=== PATIENT | male | born 1945 | race Caucasian/White ===

== ENCOUNTER → 2021-01-23 | Outpatient (CLI) | payer MEDICARE, BC ==
[~2021-01-23] MED LIST: BUPIVACAINE MPF 0.25% 10 ML VIAL. ONE; CITA40TA6 PO; DOCU50CA9 PO; FEXO180T81 PO; IOHEXOL 180 MG/ML 10 ML VIAL. ONE; LACT1CAP6 PO; LATA7.5D OU; LISI1TAB37 PO; MENS MULTIVITAMIN PO; SIMV20TA18 PO; ZOLP5TAB5 PO; methylPREDNISolone ACETATE 40 MG/ML VIAL. ONE; methylPREDNISolone ACETATE 80 MG/ML VIAL. ONE
--- NOTE | 2021-01-23 13:11 | PDOC1 ---
INITIAL PAIN CONSULT DATE OF SERVICE: DOS: DATE: 01/23/21 TIME: 13:05 CHIEF COMPLAINT: Chief Complaint: Bilateral neck pain HISTORY OF PRESENT ILLNESS: 75-year-old male presents history of pain in the base of the neck and mid neck for approximately 1-1/2 years not the result of any specific injury or accident or getting worse with time patient been treated in outside facility had 3 epidural injections as well as physical therapy dry needling and trigger point injections without any significant improvement in pain patient reports is getting much worse the base of the neck and to the mid upper neck but not quite to the base of the skull is described as throbbing and aching change during the day difficult to move his head and twist his cervical spine which make it difficult for him to drive a car patient reports awakening from sleep least 3-4 times a night does not affect his bowel bladder control or ability to walk his body drives becoming much more impaired secondary to and able to turn his head to the right or left side without significant difficulty and pain patient reports pain does not radiate specifically does not going to the upper extremities patient rates disability rating 0-10 10 me the worst is a 4 family home responsibilities 9 with recreation 6 with social activity for with occupation 9 with sexual behavior and 0 self-care life support activities. Patient is taking Tylenol which actually does decrease the pain by fair extent he is also tried naproxen which helps as well. Patient have a MRI scan of the cervical spine showing small central posterior disc protrusion contacting spinal cord C6-7 with cord maintaining normal signal broad based posterior disc bulge producing mass-effect on the thecal sac at C5-6 as well. Mild lateral facet degenerative changes are seen at C5-6 as well as C4-5 C3-C4 and C6-7. PAST MEDICAL HISTORY: PMH: Arthritis, hypertension benign prostatic hypertrophy PREVIOUS SURGERIES: Past Surgical Hx: Colon resection, tonsillectomy, TURP, deviated septum repair CURRENT MEDICATIONS: Current Meds: Active Scripts Medications Dose Route/Sig Max Daily Dose Days Date Category Stool Softener (Docusate Sodium) 50 Mg Capsule 1 Cap PO DAILY 30 01/23/21 Reported Probiotic (Lactobacillus Acidophilus) 1 Each Capsule 1 Each PO DAILY 01/23/21 Reported [mens 50 multivitamin] 1 PO 01/23/21 Reported Kierra Allergy (Fexofenadine Hcl) 180 Mg Tablet 1 Tab PO DAILY 14 01/23/21 Reported Zolpidem Tartrate 5 Mg Tablet 5 Mg PO PRN QHS PRN 01/23/21 Reported Latanoprost 0.005% Eye Drop (Latanoprost/Pf) 7.5 Ml Drops 1 Drop OU QHS 01/23/21 Reported Lisinopril-Hctz 20-12.5 Mg Tab (Lisinopril/Hydrochlorothiazide) 1 Each Tablet 1 Tab PO DAILY 01/23/21 Reported Simvastatin 20 Mg Tablet 1 Tab PO QHS 01/23/21 Reported Citalopram Hbr (Citalopram Hydrobromide) 40 Mg Tablet 1 Tab PO DAILY 01/23/21 Reported ALLERGIES; Allergies: Coded Allergies: No Known Drug Allergies (Unverified , 01/23/21) FAMILY HISTORY: Family Hx: Heart disease kidney disease and cancers SOCIAL HISTORY: Social Hx: Patient drinks alcohol 2-3 drinks daily but quit smoking many years ago does not use any illegal illicit recreational drinks is lives with his spouse lives locally in [facility] REVIEW OF SYSTEMS: ROS: Positive for those items mentioned in history of present illness, all systems are reviewed, otherwise negative ,and are complete full and well-documented on patient's chart. PHYSICAL EXAM: VS: Blood pressure is 163/104 pulse 76 respirations 16 temperature 98.4 F height is 5 foot 8 inches weight is 164 pounds PE: PHYSICAL EXAMINATION: GENERAL: The patient is awake, alert, oriented, appropriate, very pleasant in demeanor HEENT: Shows normocephalic, atraumatic. Extraocular movements are intact and symmetrical. Oral cavity: Mucous membranes moist and pink. NECK: Shows anterior throat supple without palpable lymphadenopathy noted. Swallow reflex symmetrical. CHEST: Shows normal on inspection. Breath sounds are clear bilaterally, distant no rales rhonchi or wheezes auscultated. HEART: Shows S1, S2 clear. No murmurs auscultated. ABDOMEN: Soft, nontender, nondistended. No palpable organomegaly is noted. BACK: Shows spine grossly in the midline. Normal-appearing cervical lordotic curvature. Cervical paraspinous muscles show symmetrical inspection, patient is very firm ropelike and tender musculature throughout the upper middle lower decrease the paraspinous muscles bilaterally right equal to left without any significant atrophy hypertrophy no trigger points no radiation of pain without radiation to the upper extremities or shoulders. There is slightly increased thoracic kyphosis, some minor flattening of the lumbar lordotic curvature. EXTREMITIES: Upper extremities show deep tendon reflexes 2+ in the biceps and triceps tendons. 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 Peripheral pulses are 2+ radial. No peripheral edema is noted bilaterally. Upper extremities are warm and dry to touch, equal in color and appearance. SKIN: Shows warm and dry, good turgor. No edema. No sores, rashes or bruising throughout. IMPRESSION: Impression: 75-year-old male with history of cervicalgia for 1-1/2 L MRI scan cervical spine as noted Arthritis Hypertension Plan: Options were discussed the patient including conservative management continued physical therapies interventional techniques. Patient would like to pursue interventional techniques. We discussed bilateral cervical medial branch facet blocks at the C3-4, C4-5, C5-6, C6-7 levels bilaterally with fluoroscopic guidance. Patient would like to proceed. Risks were discussed including but not limited to: Bleeding, infection, possibility of epidural hematoma and subsequent neurological compromise, dural puncture, headaches, spinal cord and/or nerve damage, side effects of steroid medication, and poor results regarding pain control. Patient understands and wished to proceed. Patient will return to clinic in approximate 2 weeks for follow-up, was counseled as return appointment, activity level, and side effect to be aware of. Under sterile prep and drape patient in prone position using C-arm fluoroscopic guidance patient cervical spine was notified in AP view with slight craniocaudad view to visualize the waist of the cervical vertebrae bilaterally. Using 1% lidocaine skin was topically anesthetized over the waist of the vertebrae for starting on the right side at C3-4 C4-5 C5-6 and C6-7. Using 22-gauge Quincke needle was then advanced through the anesthetized area to rest in contact with the waist of the vertebral body at each level. Lateral views were then used to confirm position of the needles at the facet level and slightly posterior with c ontact in the region of the medial branches at each level. Stylets were removed, and 0.5 cc of contrast was injected without vascular uptake at each level with good local spread at the level of the medial branches. This was repeated for the left side at the same levels and same technique and fluoroscopic views. Each needle showed negative aspiration and good spread of contrast. At this time each level receive 0.5 cc of bupivacaine for a total of 8 cc and total of 120 mg Depo-Medrol. [place] were removed sterile bandages were applied. Patient tolerated procedure well and had no complications. KUNAL KRUSE MD Jan 23, 2021 13:11
== END | disposition home or self-care (01) ==
LOC: PNCL 08:02
PROVIDERS: ATTEND Anesthesiology
DX: M47.812 Spondylosis without myelopathy or radiculopathy, cervical region (principal); M54.2 Cervicalgia; M19.90 Unspecified osteoarthritis, unspecified site; I10 Essential (primary) hypertension; N40.0 Benign prostatic hyperplasia without lower urinary tract symptoms; Z79.899 Other long term (current) drug therapy; Z98.890 Other specified postprocedural states; Z82.49 Family history of ischemic heart disease and other diseases of the circulatory system
CPT/HCPCS: 64490; 64491; 64492; J1030; J1040; J3490; Q9965

== ENCOUNTER → 2021-02-06 | Outpatient (CLI) | payer MEDICARE, BC ==
--- NOTE | 2021-02-06 09:00 | PDOC ---
Progress Note - Pain Clinic Date of Service: DOS: DATE: 02/06/21 TIME: 08:56 Diagnosis: Dx: Bilateral cervical spondylosis History or Present Illness: HPI: 75-year-old male returns for follow-up status post bilateral cervical facet medial branch blocks C3-4, C4-5, C5-6, C6-7. Patient reports about 75 to 80% improvement for several weeks and is still helping but is more like about a 70% improvement now patient reports the base of the neck bilaterally also in the mid upper neck his headaches now are much better and essentially resolved has increased mobility with the right and left lateral rotation as well as extension flexion patient reports he is doing much better he is very pleased with his progress but the pain is beginning to return where the rotating pain is becoming more noticeable. Patient rates his pain as a 7 on scale 10 is worse over the past week 6 on average 3 its least and is a 5 today patient what is aching and tight in the neck bilaterally right essentially equal to left. Patient reports no radiation to the upper extremities. Patient reports no new deficits. Physical Exam: VS: Blood pressure is 142/82 pulse 76 respirations 18 temperature 98.1 F weight is 160 pounds PE: PHYSICAL EXAMINATION: GENERAL: The patient is awake, alert, oriented, appropriate, very pleasant in demeanor, patient [place] by his HEENT: Shows normocephalic, atraumatic. Extraocular movements are intact and symmetrical. Oral cavity: Mucous membranes moist and pink. Dentition is intact. NECK: Shows anterior throat supple without palpable lymphadenopathy noted. Swallow reflex symmetrical. CHEST: Shows normal on inspection. Breath sounds are clear bilaterally, no rales or rhonchi. HEART: Shows S1, S2 clear. No murmurs auscultated. ABDOMEN: Soft, nontender, nondistended. No palpable organomegaly is noted. BACK: Shows spine grossly in the midline. Normal-appearing cervical lordotic curvature. Cervical paraspinous muscles show symmetrical inspection, palpation some moderate tenderness diffusely throughout the upper middle lower decrease the paraspinous muscles but without radiation without trigger points. Patient shows good rotation motion improved from previous exam but still with some tenderness with far right and far left lateral rotation past 45 degrees as well as extension but not with forward flexion. There is slightly increased thoracic kyphosis, some minor flattening of the lumbar lordotic curvature. . EXTREMITIES: Upper extremities show deep tendon reflexes 2+ in the biceps and triceps tendons. 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 Peripheral pulses are 2+ radial. No peripheral edema is noted bilaterally. Upper extremities are warm and dry to touch, equal in color and appearance. SKIN: Shows warm and dry, good turgor. No edema. No sores, rashes or bruising throughout. Procedure: Procedure: Options discussed with patient. Patient chart reviews his current medication regimen updated current review of systems updated today as well. We will proceed with bilateral C3-4, C4-5, C5-6, C6-7 medial branch facet blocks today with fluoroscopic guidance. Risks were discussed including but not limited to: Bleeding, infection, possibility of epidural hematoma and subsequent neurological compromise, dural puncture, headaches, spinal cord and/or nerve damage, side effects of steroid medication, and poor results regarding pain control. Patient understands and wished to proceed. Patient will return to clinic in approximately 2 weeks for follow-up, was counseled as to return appointment, activity level, and side effect to be aware of. Medication Injected: Med Injected: Under sterile prep and drape patient in prone position using C-arm fluoroscopic guidance patient cervical spine was notified in AP view with slight craniocaudad view to visualize the waist of the cervical vertebrae bilaterally. Using 1% lidocaine skin was topically anesthetized over the waist of the vertebrae for starting on the right side at C3-4 C4-5 C5-6 and C6-7. Using 22-gauge Quincke needle was then advanced through the anesthetized area to rest in contact with the waist of the vertebral body at each level. Lateral views were then used to confirm position of the needles at the facet level and slightly posterior with contact in the region of the medial branches at each level. Stylets were removed, and 0.5 cc of contrast was injected without vascular uptake at each level with good local spread at the level of the medial branches. This was repeated for the left side at the same levels and same technique and fluoro scopic views. Each needle showed negative aspiration and good spread of contrast. At this time each level receive 0.5 cc of bupivacaine for a total of 8 cc and total of 120 mg Depo-Medrol. [place] were removed sterile bandages were applied. Patient tolerated procedure well and had no complications. Condition at Discharge: Condition at Discharge: Condition at discharge is stable, patient tolerated the procedure well and had no complications. KUNAL KRUSE MD Feb 06, 2021 09:00
== END | disposition home or self-care (01) ==
LOC: PNCL 08:06
PROVIDERS: ATTEND Anesthesiology
DX: M47.812 Spondylosis without myelopathy or radiculopathy, cervical region (principal); Z79.899 Other long term (current) drug therapy
CPT/HCPCS: 64490; 64491; 64492; J1030; J1040; J3490; Q9965; 64480

== ENCOUNTER → 2021-02-27 | Outpatient (CLI) | payer MEDICARE, BC ==
--- NOTE | 2021-02-27 10:35 | PDOC ---
Progress Note - Pain Clinic Date of Service: DOS: DATE: 02/27/21 TIME: 10:28 Diagnosis: Dx: Bilateral cervical spondylosis History or Present Illness: HPI: 75-year-old male returns status post bilateral medial branch blocks cervical 3 4, 4 5, 5 6, 6 7 bilateral last seen February 06, 2021. Patient reports he did very well about 80 to 85% improvement in his pain the neck is beginning to return now in the upper part of neck more than the middle or lower distribution but in all the areas patient reports it is much better though with activity sleeping moving his head upper extremities patient reports his pain still a 6 on scale 10 is worst 3 on average 3 to [place] is a 3 today is doing much better with daily activities and feeling much better overall patient reports is an ac [place] pain not shooting radiating to the upper extremities patient reports better at night and she is not awakening from sleep anymore. Patient reports no radiation no photophobia no headaches with medication patient reports a new pain of occasional sharper pains shooting up into the back of the occipital region but these were transitory and have not been persistent is only happened about twice since his last visit. Patient has had a sinus cold over the past few weeks and put off his return until today. Physical Exam: VS: Blood pressure is 131/75 pulse 95 respirations 18 temperature 92 F height is 5 feet 8 inches weight is 64 pounds PE: PHYSICAL EXAMINATION: GENERAL: The patient is awake, alert, oriented, appropriate, very pleasant in demeanor HEENT: Shows normocephalic, atraumatic. Extraocular movements are intact and symmetrical. Oral cavity: Mucous membranes moist and pink. Dentition is intact. NECK: Shows anterior throat supple without palpable lymphadenopathy noted. Swallow reflex symmetrical. CHEST: Shows normal on inspection. Breath sounds are clear bilaterally, distant no rales or rhonchi. HEART: Shows S1, S2 clear. No murmurs auscultated. ABDOMEN: Soft, nontender, nondistended. No palpable organomegaly is noted. BACK: Shows spine grossly in the midline. Normal-appearing cervical lordotic curvature. Cervical paraspinous muscles show symmetrical inspection, on palpation some moderate tenderness diffusely bilaterally diffusely without sig nificant radiation patient does show significant tenderness with extension of cervical spine with pain the base of the skull and upper neck but better with forward flexion right and left lateral rotation shows a moderate pain in the same distribution but only moderate without radiation. There is slightly increased thoracic kyphosis, some minor flattening of the lumbar lordotic cur vature. EXTREMITIES: Upper extremities show deep tendon reflexes 2+ in the biceps and triceps tendons. 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 Peripheral pulses are 2+ radial. No peripheral edema is noted bilaterally. Upper extremities are warm and dry to touch, equal in color and appearance. SKIN: Shows warm and dry, good turgor. No edema. No sores, rashes or bruising throughout. Procedure: Procedure: Options were discussed with the patient. Patient chart was reviewed his current medication regimen updated current review of systems updated today as well. We will proceed with bilateral facet medial branch blocks of the cervical 3 4, 4 5, 5 6, 6 7 levels with fluoroscopic guidance. Patient will return to the clinic in approximately 3 weeks for follow-up, was counseled as to return appointment, activity level, and side effect to be aware of. Medication Injected: Med Injected: Under sterile prep and drape patient in prone position using C-arm fluoroscopic guidance patient cervical spine was notified in AP view with slight craniocaudad view to visualize the waist of the cervical vertebrae bilaterally. Using 1% lidocaine skin was topically anesthetized over the waist of the vertebrae for starting on the right side at C3-4 C4-5 C5-6 and C6-7. Using 22-gauge Quincke needle was then advanced through the anesthetized area to rest in contact with the waist of the vertebral body at each level. Lateral views were then used to confirm position of the needles at the facet level and slightly posterior with contact in the region of the medial branches at each level. Stylets were removed, and 0.5 cc of contrast was injected without vascular uptake at each level with good local spread at the level of the medial branches. This was repeated for the left side at the same levels and same technique and fluoroscopic views. Each needle showed negative aspiration and good spread of contrast. At this time each level receive 0.5 cc of bupivacaine for a total of 8 cc and total of 120 mg Depo-Medrol. [place] were removed sterile bandages were applied. Patient tolerated procedure well and had no complications. Condition at Discharge: Condition at Discharge: Condition at discharge stable, patient tolerated the procedure well and had no complications. KUNAL KRUSE MD Feb 27, 2021 10:35
--- NOTE | 2021-02-27 10:36 | PDOC4 ---
Procedure Note: ICD 10 Code: ICD 10 Code: M4 7.812 Procedure Note: Patient was consented for bilateral cervical facet medial branch blocks with fluoroscopic guidance. Risks were discussed including but not limited to: Bleeding, infection, possibility of epidural hematoma and subsequent neurological compromise, dural puncture, headaches, spinal cord and/or nerve damage, side effects of steroid medication, and poor results regarding pain control. Patient understands and wished to proceed. Under sterile prep and drape patient in prone position using C-arm fluoroscopic guidance patient cervical spine was notified in AP view with slight craniocaudad view to visualize the waist of the cervical vertebrae bilaterally. Using 1% lidocaine skin was topically anesthetized over the waist of the vertebrae for starting on the right side at C3-4 C4-5 C5-6 and C6-7. Using 22-gauge Quincke needle was then advanced through the anesthetized area to rest in contact with the waist of the vertebral body at each level. Lateral views were then used to confirm position of the needles at the facet level and slightly posterior with contact in the region of the medial branches at each level. Stylets were removed, and 0.5 cc of contrast was injected without vascular uptake at each level with good local spread at the level of the medial branches. This was repeated for the left side at the same levels and same technique and fluoroscopic views. Each needle showed negative aspiration and good spread of contrast. At this time each level receive 0.5 cc of bupivacaine for a total of 8 cc and total of 120 mg Depo-Medrol. [place] were removed sterile bandages were applied. Patient tolerated procedure well and had no complications. KUNAL KRUSE MD Feb 27, 2021 10:36
== END | disposition home or self-care (01) ==
LOC: PNCL 09:07
PROVIDERS: ATTEND Anesthesiology
DX: M47.812 Spondylosis without myelopathy or radiculopathy, cervical region (principal); Z79.899 Other long term (current) drug therapy; Z88.8 Allergy status to other drugs, medicaments and biological substances
CPT/HCPCS: 64490; 64491; 64492; J1030; J1040; J3490; Q9965

== ENCOUNTER → 2021-03-27 | Outpatient (CLI) | payer MEDICARE, BC ==
[~2021-03-27] MED LIST changes: -methylPREDNISolone ACETATE 40 MG/ML VIAL. ONE
--- NOTE | 2021-03-27 10:02 | PDOC ---
Progress Note - Pain Clinic Date of Service: DOS: DATE: 03/27/21 TIME: 09:57 Diagnosis: Dx: Cervical spondylosis History or Present Illness: HPI: 75-year-old male returns for follow-up status post cervical facet medial branch blocks at C3-4, C4-5, C5-6, C6-7. Patient reports he did very well with about 80% improvement after the last injections with the pain returning now more on the left than the right but present bilaterally patient reports did very well for about 3 weeks and the pain began to return again more in the left side than the right currently but reports it is now down to about a 50% level improvement overall. Patient reports no loss of motor function no deficits but significant tenderness with rotating to the left side especially when driving and with looking upwards when he is sitting down he has a clock in his home that he looks at that is a high on the wall and notices the pain when he is looking up at that from looking down in a seated position. Patient reports pain is aching and shooting base the neck and shoulders again worse on the left than the right described as a 7-8 on scale 10 is worst for an average for its least is a 4 to day. Patient reports no bowel or bladder incontinence no motor deficits but significant pain in the neck more on the left side. Patient reports that prior to the pain returning was doing much better with distance walking doing household activities try with greater ease and comfort still sleeps fairly well at night does not awaken from sleep most nights as it is more comfortable with laying down. Physical Exam: VS: Blood pressure is 150/80 pulse 75 respirations 18 temperature 90.1 is Fahrenheit height is 5 feet 8 inches weight is 165 pounds. PE: PHYSICAL EXAMINATION: GENERAL: The patient is awake, alert, oriented, appropriate, very pleasant in demeanor HEENT: Shows normocephalic, atraumatic. Extraocular movements are intact and symmetrical. Oral cavity: Mucous membranes moist and pink. NECK: Shows anterior throat supple without palpable lymphadenopathy noted. Swallow reflex symmetrical. CHEST: Shows normal on inspection. Breath sounds are clear bilaterally, no rales or rhonchi auscultated. HEART: Shows S1, S2 clear. No murmurs auscultated. ABDOMEN: Soft, nontender, nondistended. No palpable organomegaly is noted. BACK: Shows spine grossly in the midline. Normal-appearing cervical lordotic curvature. Cervical paraspinous muscles show symmetrical inspection, palpation some moderate tenderness diffusely throughout the upper middle lower decrease the paraspinous muscle slightly more on the left than the right but without specific trigger atrophy hypertrophy no trigger points or asymmetry. Patient shows some guarded rotation of motion especially with left lateral rotation past about 40 degrees right side is more comfortable but still some guarded rotation also with extension patient reports pain the base of the neck bilaterally as well as more on the left than the right into the lower neck and superior medial trapezius forward flexion of reports same tenderness on the left side greater than the right but present bilaterally. There is slightly increased thoracic kyphosis, some minor flattening of the lumbar lordotic curvature. EXTREMITIES: Upper extremities show deep tendon reflexes 2+ in the biceps and triceps tendons. 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 Peripheral pulses are 2+ radial. No peripheral edema is noted bilaterally. Upper extremities are warm and dry to touch, equal in color and appearance. SKIN: Shows warm and dry, good turgor. No edema. No sores, rashes or bruising throughout. Procedure: Procedure: Options discussed with the patient. Patient's old chart was reviewed his current medication regimen updated current review of systems updated today as well. We will proceed with bilateral facet medial branch blocks at the C3-4, C4-5, C5-6, C6-7 levels with fluoroscopic guidance. Risks were discussed including but not limited to: Bleeding, infection, possibility of epidural hematoma and subsequent neurological compromise, dural puncture, headaches, spinal cord and/or nerve damage, side effects of steroid medication, and poor results regarding pain control. Patient understands and wished to proceed. We discussed with the patient if he has similar improvement as he has had with the previous injections at the pain returns would consider radiofrequency ablation patient is interested in pursuing this. Patient will return to clinic in approximately 2 weeks for follow-up, was counseled as to return appointment, Activella, and side effect beware of. Medication Injected: Med Injected: Under sterile prep and drape patient in prone position using C-arm fluoroscopic guidance patient cervical spine was notified in AP view with slight craniocaudad view to visualize the waist of the cervical vertebrae bilaterally. Using 1% lidocaine skin was topically anesthetized over the waist of the vertebrae for starting on the right side at C3-4 C4-5 C5-6 and C6-7. Using 22-gauge Quincke needle was then advanced through the anesthetized area to rest in contact with the waist of the vertebral body at each level. Lateral views were then used to confirm position of the needles at the facet level and slightly posterior with contact in the region of the medial branches at each level. Stylets were removed, and 0.5 cc of contrast was injected without vascular uptake at each level with good local spread at the level of the medial branches. This was repeated for the left side at the same levels and same technique and fluoroscopic views. Each needle showed negative aspiration and good spread of contrast. At this time each level receive 0.5 cc of bupivacaine for a total of 8 cc and total of 120 mg Depo-Medrol. Howells were removed sterile bandages were applied. Patient tolerated procedure well and had no complications. Condition at Discharge: Condition at Discharge: Condition at discharge stable, patient tolerated procedure well and had no complications. KUNAL KRUSE MD Mar 27, 2021 10:02
== END | disposition home or self-care (01) ==
LOC: PNCL 08:54
PROVIDERS: ATTEND Anesthesiology
DX: M47.812 Spondylosis without myelopathy or radiculopathy, cervical region (principal); Z79.899 Other long term (current) drug therapy
CPT/HCPCS: 64490; 64491; 64492; J1040; J3490; Q9965

== ENCOUNTER → 2021-04-17 | Outpatient (CLI) | payer MEDICARE, BC ==
[~2021-04-17] MED LIST changes: +DEXAMETHASONE PRES.FREE 10 MG/ML VIAL. ONE; +LIDOCAINE 2% PF 5 ML VIAL. ONE; -methylPREDNISolone ACETATE 80 MG/ML VIAL. ONE
--- NOTE | 2021-04-17 14:52 | PDOC ---
Progress Note - Pain Clinic Date of Service: DOS: DATE: 04/17/21 TIME: 14:43 Diagnosis: Dx: Cervical spondylosis History or Present Illness: HPI: 75-year-old male returns after bilateral cervical medial branch facet blocks C3- 4, C4-5, C5-6, C6-7 with very good results about 80% improvement for 2 weeks patient reports is now down to about a 50% improvement over the last week or so still doing much better still more pain on the left side the right the base the neck worse with rotation of motion especially extension of the cervical spine but not as much with forward flexion and feels "tight" patient rates his pain is a 6 on scale 10 is worse over the past week 3 on average 3 to [place] is a [address] aching tight shooting across the neck but not into the upper extremities patient reports generally feels better with sitting with his head supported laying down but still does awaken from sleep about once a night but not every night. Patient reports no motor or sensory deficits. Physical Exam: VS: Blood pressure is 135/84 pulse 85 respirations 20 temperature is 98.1 F height is 5 foot 8 inches weight is 161 pounds. PE: PHYSICAL EXAMINATION: GENERAL: The patient is awake, alert, oriented, appropriate, very pleasant in demeanor HEENT: Shows normocephalic, atraumatic. Extraocular movements are intact and symmetrical. Oral cavity: Mucous membranes moist and pink. Dentition is intact. NECK: Shows anterior throat supple without palpable lymphadenopathy noted. Swal low reflex symmetrical. CHEST: Shows normal on inspection. Breath sounds are clear bilaterally, no rales or rhonchi. HEART: Shows S1, S2 clear. No murmurs auscultated. ABDOMEN: Soft, nontender, nondistended. No palpable organomegaly is noted. BACK: Shows spine grossly in the midline. Normal-appearing cervical lordotic curvature. Cervical paraspinous muscles show symmetrical inspection on palpation some moderate tenderness diffusely throughout the upper middle lower decrease the paraspinous muscles more on the left than the right but present bilaterally with deeper palpation patient shows good rotation of motion cervical spine with some moderate tenderness is reported again worse on the left than the right with extension fully and with full forward flexion mild tenderness on the left side and a tight sensation described as well patient shows good rotation of motion laterally is right and left greater than 45 degrees closer 90 degrees again with some moderate pain reported more on the left than with the right but performed fully. There is slightly increased thoracic kyphosis, some minor flattening of the lumbar lordotic curvature. . EXTREMITIES: Upper extremities show deep tendon reflexes 2+ in the biceps and triceps tendons. Motor exam is 5 on a scale of 5 with right rib, biceps and triceps flexion and 5/5 on the left. Peripheral pulses are 2+ radial. No peripheral edema is noted bilaterally. Upper extremities are warm and dry to touch, equal in color and appearance. SKIN: Shows warm and dry, good turgor. No edema. No sores, rashes or bruising throughout. Procedure: Procedure: Options were discussed with the patient. Patient's old chart was viewed as current medication regimen updated current review of systems updated today as well. We will proceed with the radiofrequency ablation of the left C3-4, C4-5, C5-6 medial branches with fluoroscopic guidance. Risks were discussed including but not limited to: Bleeding, infection, possibility of epidural hematoma and subsequent neurological compromise, dural puncture, headaches, spinal cord and/or nerve damage, potential thermal damage to the surrounding structures as well as permanent ischemic damage, side effects of steroid medication, and poor results regarding pain control. Patient understands and wished to proceed. Patient will return to clinic in approximately 1 week for follow-up. Medication Injected: Med Injected: Under sterile prep and drape patient in prone position using C-arm fluoroscopic guidance patient's cervical spine was visualized in both AP and lateral views using 1% lidocaine to topically anesthetize the areas overlying the C3-4, C4-5, C5-6 facet joints at the waist of the articular process, at the point of the medial branches. Using a 22-gauge insulated radiofrequency needle with curved tips and stylette, the needles were advanced to contact the region of the facet with the medial branch targets. This was repeated at the C3-4, C4-5, C5-6 levels. Stylette was removed and using radiofrequency probe inserted into each needle individually at each level with sensory testing first at each level, with reproduction of patient's typical cervical pain, and then motor tested with no motor stimulation of the lower extremity. At this time 0.5 cc of 2% lidocaine was then injected in each needle after motor testing but prior to radiofrequency ablation. Needle position was confirmed continuously throughout the radiofrequency ablation with both AP oblique and lateral views at each level. At this time radiofrequency ablation was carried out each level for 60 seconds at 80 C x 2 at each level with the tip of the needle turned 90 degrees after the first 60 seconds and then subsequent 60 seconds of radiofrequency ablation. Once radiofrequency ablation was completed solution containing 0.25% bupivacaine 1 cc and total of 10 mg Decadron was injected each level. Needle was then withdrawn. Patient had no paresthesias throughout the procedure no radiation of pain into the lower extremities no lower extremity motor response with motor testing bilaterally. Please see radiofrequency flowsheet for levels, temperatures, impedance, sensory testing, motor testing, etc. Condition at Discharge: Condition at Discharge: Condition at discharge stable, patient tolerated the procedure well and had no complications. KUNAL KRUSE MD Apr 17, 2021 14:52
== END | disposition home or self-care (01) ==
LOC: PNCL 13:34
PROVIDERS: ATTEND Anesthesiology
DX: M47.812 Spondylosis without myelopathy or radiculopathy, cervical region (principal); Z79.899 Other long term (current) drug therapy
CPT/HCPCS: 64633; 64634; J1100; J3490; Q9965

== ENCOUNTER → 2021-04-24 | Outpatient (CLI) | payer MEDICARE, BC ==
--- NOTE | 2021-04-24 15:30 | PDOC ---
Progress Note - Pain Clinic Date of Service: DOS: DATE: 04/24/21 TIME: 15:24 Diagnosis: Dx: Bilateral cervical spondylosis History or Present Illness: HPI: 75-year-old returns for follow-up status post medial branch facet blocks as well as 1 week ago left radiofrequency ablation cervical C3-4, C4-5-6, C5-6 levels with very good results patient reports about a 60% improvement so far still some soreness in the left side of the neck returns today with complaints of a right pain still persistent again after doing very well with medial branch facet blocks about 80% improvement for 2 weeks and we had him return today for right- sided radiofrequency ablation at the same levels. Patient reports no new motor or sensory deficits or other complaints rates his pain is a 4 on a scale of 10 regarding the right neck over the past week at its worst is a 3 on average to its least is a 2 today. Patient was aching and tight some burning pain as well in the neck without radiation. Patient reports has been sleeping better since the procedure on the left side of the neck last week. Physical Exam: VS: Blood pressure is 139 6 pulse 88 respirations 18 temperature is 98.0 F height is 5 feet 8 inches weight is 163 pounds. PE: PHYSICAL EXAMINATION: GENERAL: The patient is awake, alert, oriented, appropriate, very pleasant demeanor HEENT: Shows normocephalic, atraumatic. Extraocular movements are intact. Oral cavity: Mucous membranes are moist and pink. Dentition is intact. NECK: Shows anterior throat supple without palpable lymphadenopathy noted. Swallow reflex symmetrical. CHEST: Shows normal on inspection. Breath sounds are clear bilaterally, distant but no rales or rhonchi auscultated. HEART: Shows S1, S2 clear. No murmurs auscultated. ABDOMEN: Soft, nontender, nondistended. No palpable organomegaly is noted. BACK: Shows spine grossly in the midline. Normal-appearing cervical lordotic curvature. Cervical paraspinous muscles show symmetrical inspection on palpation some moderate tenderness diffusely bilaterally but more on the right than the left and in the middle and inferior aspect of the cervical paraspinous musculature as well as into the superior medial trapezius on the right but less tender on the left. Patient does show good rotation motion with some right- sided tenderness with extension as well as right lateral rotation past 45 degrees but less tender with left lateral rotation and no tenderness with forward flexion at this time. There is slightly increased thoracic kyphosis, some minor flattening of the lumbar lordotic curvature. EXTREMITIES: Upper extremities show deep tendon reflexes 2+ in the biceps and triceps tendons. 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 Peripheral pulses are 2+ radial. No peripheral edema is noted bilaterally. Upper extremities are warm and dry to touch, equal in color and appearance. Shoulder shrug strong intact without loss of strength on resistance bilaterally as is abduction of the shoulder 90 degrees without loss of strength bilaterally. SKIN: Shows warm and dry, good turgor. No edema. No sores, rashes or bruising throughout. Procedure: Procedure: Options were discussed with patient. Patient's old chart was reviewed as her current medication regimen updated current review of systems updated today as well. We will proceed with right-sided radiofrequency ablation of the medial branch levels C3-4, C4-5, C5-6 with fluoroscopic guidance. Risks were discussed including but not limited to: Bleeding, infection, possibility of epidural hematoma and subsequent neurological compromise, dural puncture, headaches, spinal cord and/or nerve damage, potential thermal injury to the surrounding structures as well as to the nerves himself with permanent ischemic damage, side effects of steroid medication, and poor results regarding pain control. Patient understands and wished to proceed. Patient return to clinic in approximate 4 for follow-up, was counseled as to return appointment, activity level, and side effect to be aware of. Medication Injected: Med Injected: Under sterile prep and drape patient in prone position using C-arm fluoroscopic guidance patient's cervical spine was visualized in both AP and lateral views using 1% lidocaine to topically anesthetize the areas overlying the right C3-4, C4-5, C5-6 facet joints at the waist of the articular process, at the point of the medial branches. Using a 22-gauge insulated radiofrequency needle with curved tips and stylette, the needles were advanced to contact the region of the facet with the medial branch targets. This was repeated at the right C3-4, C4- 5, C5-6 levels. Stylette was removed and using radiofrequency probe inserted into each needle individually at each level with sensory testing first at each level, with reproduction of patient's typical cervical pain, and then motor tested with no motor stimulation of the lower extremity. At this time 0.5 cc of 2% lidocaine was then injected in each needle after motor testing but prior to radiofrequency ablation. Needle position was confirmed continuously thro ughout the radiofrequency ablation with both AP oblique and lateral views at each level. At this time radiofrequency ablation was carried out each level for 60 seconds at 80 C x 2 at each level with the tip of the needle turned 90 degrees after the first 60 seconds and then subsequent 60 seconds of radiofrequency ablation. Once radiofrequency ablation was completed solution containing 0.25% bupivacaine 1 cc and total of 10 mg Decadron was injected each level. Needle was then withdrawn. Patient had no paresthesias throughout the procedure no radiation of pain into the lower extremities no lower extremity motor response with motor testing bilaterally. Please see radiofrequency flowsheet for levels, temperatures, impedance, sensory testing, motor testing, etc. Condition at Discharge: Condition at Discharge: Condition at discharge is stable, patient tolerated the procedure well and had no complications. KUNAL KRUSE MD Apr 24, 2021 15:30
== END | disposition home or self-care (01) ==
LOC: PNCL 13:57
PROVIDERS: ATTEND Anesthesiology
DX: M47.812 Spondylosis without myelopathy or radiculopathy, cervical region (principal); Z79.899 Other long term (current) drug therapy
CPT/HCPCS: 64633; 64634; J1100; J3490; Q9965

== ENCOUNTER → 2021-05-22 | Outpatient (CLI) | payer MEDICARE, BC ==
[~2021-05-22] MED LIST changes: -BUPIVACAINE MPF 0.25% 10 ML VIAL. ONE; -DEXAMETHASONE PRES.FREE 10 MG/ML VIAL. ONE; -IOHEXOL 180 MG/ML 10 ML VIAL. ONE; -LIDOCAINE 2% PF 5 ML VIAL. ONE
--- NOTE | 2021-05-22 09:57 | PDOC ---
Progress Note - Pain Clinic Date of Service: DOS: DATE: 05/22/21 TIME: 09:52 Diagnosis: Dx: Cervical spondylosis Myofascial pain History or Present Illness: HPI: 76-year-old male returns for follow-up status post radiofrequency ablation bilateral cervical facet medial branches with about 60% improvement overall patient reports still some pain but the pain is somewhat different and is more on the left side of the neck and the right is in the base of the skull and in the lateral posterior aspect of the muscles of the neck with some stiffness involved patient reports that the pain overall is much improved as his mobility is improved as well except for looking to the left side patient reports he feels that his neck is stiff and has noticed he did self turning his entire upper t orso to look to his left side. Patient reports he is sleeping much better at night however increased activities of daily living with greater ease and comfort walking greater distances since he feels some dizziness with looking up quickly but this dissipates very quickly he does not feel is related patient rates his pain as a 7 on scale 10 is worst, is a 4 on average and 4 at its least, and is a 4 today. Patient reports no loss of motor function no bowel or bladder incontinence no radiation to the upper extremities. Physical Exam: VS: Blood pressure is 154/76 pulse 83 respirations 18 temperature 98.1 F height is 5 feet 8 inches weight is 166 pounds. PE: PHYSICAL EXAMINATION: GENERAL: The patient is awake, alert, oriented, appropriate, very pleasant in demeanor HEENT: Shows normocephalic, atraumatic. Extraocular movements are intact and symmetrical. Oral cavity: Mucous membranes moist and pink. NECK: Shows anterior throat supple without palpable lymphadenopathy noted. Swallow reflex symmetrical. CHEST: Shows normal on inspection. Breath sounds are clear bilaterally, no ral es or rhonchi auscultated. HEART: Shows S1, S2 clear. No murmurs auscultated. ABDOMEN: Soft, nontender, nondistended. No palpable organomegaly is noted. BACK: Shows spine grossly in the midline. Normal-appearing cervical lordotic curvature. Cervical paraspinous muscles show symmetrical with inspection on palpation some moderate tenderness left greater than right in the superior middle and inferior aspect of the cervical paraspinous musculature with some very firm ropelike musculature on the left and the right more tender on the left but without radiation. Patient shows somewhat guarded rotation motion to the left only and performs right lateral rotation past 45 degrees without significant difficulty also extension and forward flexion without difficulty. There is slightly increased thoracic kyphosis, some minor flattening of the lumbar lordotic curvature. EXTREMITIES: Upper extremities show deep tendon reflexes 2+ in the biceps and triceps tendons. Motor exam is 5 on a scale of 5 with right rib, biceps and tricep flexion and 5/5 on the left. Peripheral pulses are 2+ radial. No peripheral edema is noted bilaterally. Upper extremities are warm and dry to touch, equal in color and appearance. SKIN: Shows warm and dry, good turgor. No edema. No sores, rashes or bruising throughout. Procedure: Procedure: Options were discussed with the patient. Patient's old chart was reviewed his current medication regimen updated current review of systems updated today as well. We discussed stretching strength exercises for patient to perform on his own as well as heat application and ice application for soothing of the pain. Also, will take on schedule anti-inflammatory medications [id number] ibuprofen 3 times daily. If not significantly improved will have patient return in approximate 1 week for reevaluation at that time. Medication Injected: Med Injected: None Condition at Discharge: Condition at Discharge: Condition at discharge is stable. KUNAL KRUSE MD May 22, 2021 09:56
== END | disposition home or self-care (01) ==
LOC: PNCL 08:59
PROVIDERS: ATTEND Anesthesiology
DX: M47.812 Spondylosis without myelopathy or radiculopathy, cervical region (principal); M79.18 Myalgia, other site; Z79.899 Other long term (current) drug therapy
CPT/HCPCS: 99212; G0463

== ENCOUNTER → 2021-05-31 | Outpatient (CLI) | payer MEDICARE, BC ==
[~2021-05-31] MED LIST changes: +BUPIVACAINE MPF 0.25% 10 ML VIAL. ONE; +DEXAMETHASONE PRES.FREE 10 MG/ML VIAL. ONE
--- NOTE | 2021-05-31 08:37 | PDOC ---
Progress Note - Pain Clinic Date of Service: DOS: DATE: 05/31/21 TIME: 08:32 Diagnosis: Dx: Cervical spondylosis Myofascial pain History or Present Illness: HPI: 76-year-old male returns for follow-up status post cervical facet medial branch radiofrequency ablation patient did very well with about 60% improvement patient reports still some stiffness in the neck however we will try some stretching s trength exercises as well as physical therapy exercises heat applications as well without a significant reduction in pain patient still reports significant stiffness in the neck bilaterally also in the upper back between the shoulder blades and into the base of the neck and shoulders bilaterally worse on the left than the right but present bilaterally. Patient reports no radiation of pain that his mobility is much better after the radiofrequency ablation still having difficulty turning to the left side with his neck secondary to pain now more spastic in type sensation than it was more deeper and painful prior to the radiofrequency procedure. Patient reports no loss of motor function no radiation to the upper extremities at this time. Patient report is worse with rotation of motion to the left as well as with looking upwards and feels very tight on the left side behind the ear to the shoulder and some in upper back again worse on the left than the right but present bilaterally. Physical Exam: VS: Blood pressure 150/93 pulse 77 respirations 16 temperature 90.1 F height is 5 foot 8 inches weight is 164 pounds. PE: PHYSICAL EXAMINATION: GENERAL: The patient is awake, alert, oriented, appropriate, very pleasant in demeanor HEENT: Shows normocephalic, atraumatic. Extraocular movements are intact and symmetrical. Oral cavity: Mucous membranes moist and pink. Dentition is intact. NECK: Shows anterior throat supple without palpable lymphadenopathy noted. CHEST: Shows normal on inspection. Breath sounds are clear bilaterally. HEART: Shows S1, S2 clear. No murmurs auscultated. ABDOMEN: Soft, nontender, nondistended. No palpable organomegaly is noted. BACK: Shows spine grossly in the midline. Normal-appearing cervical lordotic curvature. Cervical paraspinous muscles show symmetrical inspection on palpation some very firm ropelike musculature throughout the upper middle lower distribution paraspinous musculature in the cervical distribution on the left and the right left slightly more tender but present bilaterally with significant tenderness bilaterally without radiation situated the superior medial trapezius bilaterally again more tender on the left with very firm ropelike musculature consistent with trigger point areas of musculature greater on the left than the right also into the superior trapezius and into the thoracic paraspinous musculature in the superior aspect again worse on the left than the right but reasonably symmetrical without significant atrophy hypertrophy with very firm ropelike musculature very tender with trigger point quality and tenderness bilaterally again without radiation. There is slightly increased thoracic kyphosis, some minor flattening of the lumbar lordotic curvature. EXTREMITIES: Upper extremities show deep tendon reflexes 2+ in the biceps and triceps tendons. 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 Peripheral pulses are 2+ radial. No peripheral edema is noted bilaterally. Upper extremities are warm and dry to touch, equal in color and appearance. SKIN: Shows warm and dry, good turgor. No edema. No sores, rashes or bruising throughout. Procedure: Procedure: Options were discussed with patient. Patient's old chart was reviewed his current medication regimen updated current review of systems updated today as well. We will proceed with trigger point injections of the bilateral cervical paraspinous posterior, bilateral trapezius muscular, bilateral thoracic paraspinous musculature. Risk were discussed including but not limited to bleeding infection possibility of intravascular injection and sequelae spread of local anesthetic and numbness pneumothorax side effects steroid medication po rtals regarding pain control. Patient understands wished to proceed. Patient return to the clinic in approximately 4 weeks for follow-up, was counseled as to return appointment, activity level, and side effect to be aware of. Medication Injected: Med Injected: Under sterile prep and drape patient in sitting position patient's cervical paraspinous musculature trapezius muscular and upper thoracic paraspinous muscular was sterilely prepped and draped in usual fashion. Using a 25-gauge needle triggerpoints were identified throughout the cervical paraspinous posterior trapezius musculature and thoracic paraspinous posture individually with injection and each trigger point after negative aspiration, for a total of 10 cc 0.25% ropivacaine and total of 10 mg dexamethasone. Patient tolerated the procedure well and had no complications. Condition at Discharge: Condition at Discharge: Condition at discharge stable, paced tolerated procedure well and had no complications. KUNAL KRUSE MD May 31, 2021 08:37
--- NOTE | 2021-05-31 08:38 | PDOC4 ---
Procedure Note: ICD 10 Code: ICD 10 Code: M60.89 Procedure Note: Patient was consented for trigger point injections bilateral cervical paraspinous muscular, bilateral trapezius muscular, bilateral thoracic paraspinous musculature. Risk were discussed including but not limited to bleeding infection possibility of intravascular injection sequelae spread local acetic numbness pneumothorax side effects steroid medication and poor results regarding pain control. Patient understands wished to proceed. Under sterile prep and drape patient in sitting position patient's cervical paraspinous musculature trapezius muscular and upper thoracic paraspinous muscular was sterilely prepped and draped in usual fashion. Using a 25-gauge needle triggerpoints were identified throughout the cervical paraspinous posterior trapezius musculature and thoracic paraspinous posture individually with injection and each trigger point after negative aspiration, for a total of 10 cc 0.25% ropivacaine and total of 10 mg dexamethasone. Patient tolerated the procedure well and had no complications. KUNAL KRUSE MD May 31, 2021 08:38
== END | disposition home or self-care (01) ==
LOC: PNCL 07:55
PROVIDERS: ATTEND Anesthesiology
DX: M79.18 Myalgia, other site (principal); M47.812 Spondylosis without myelopathy or radiculopathy, cervical region; Z79.899 Other long term (current) drug therapy
CPT/HCPCS: 20553; J1100; J3490